=== PATIENT | female | born 1965 | race Caucasian/White ===

== ENCOUNTER 2019-10-26 09:17 | Inpatient (IN) ==
[2019-10-26] MEDS ORDERED: Ipratropium/Albuterol Neb 3 ML IH STA (09:30)
[2019-10-26] MEDS ORDERED: predniSONE 20 MG TABLET PO ONE (09:30)
[2019-10-26] MEDS ORDERED: 0.9 % Sodium Chloride 1,000 ML IVC STA (09:36)
[2019-10-26] MEDS ORDERED: cefTRIAXone 2,000 MG in Water for inj. (sterile) 20 ML IVP ONE (09:57)
[2019-10-26] MEDS ORDERED: Azithromycin 500 MG in 0.9 % Sodium Chloride 250 ML IVPB ONE (09:58)
[2019-10-26 10:03] LABS: Basophils % 0.1 %; Eosinophils # 0.1 K/mcL (0.0-0.6); Eosinophils % 0.4 %; Hematocrit 46.1 % (35.3-44.9); Hemoglobin 15.5 g/dL (11.5-15.4); Immature Granulocytes % 0.4 % (0-4); Lymphocytes # 1.4 K/mcL (0.6-4.6); Lymphocytes % 8.9 %; Mean Corpuscular HGB Conc 33.6 g/dL (31.6-35.5); Mean Corpuscular Hemoglobin 32.1 pg (28.0-33.3); Mean Corpuscular Volume 95.4 fL (83.0-100.0); Monocytes # 0.9 K/mcL (0.0-1.3); Monocytes % 5.4 %; Neutrophils # 13.7 K/mcL (1.6-8.9); Platelet Count 175 K/mcL (140-400); Red Blood Count 4.83 M/mcL (3.82-4.97); Red Cell Distribution Width 12.5 % (11.5-14.5); Segmented Neutrophils % 84.8 %; White Blood Count 16.1 K/mcL (4.3-11.1)
[2019-10-26 10:20] LABS: BUN/Creatinine Ratio 9 (6-26); Blood Urea Nitrogen 6 mg/dL (6-20); Calcium 9.5 mg/dL (8.6-10.3); Carbon Dioxide 25 mEq/L (23-29); Chloride 103 mEq/L (98-107); Glucose 134 mg/dL (70-105); Osmolality,Calculated 278 (280-300); Potassium 3.7 mEq/L (3.5-5.1); Sodium 134 mEq/L (136-145); eGFR For African Americans > 60 (> 60); eGFR For Non-African Americans > 60 (> 60)
[2019-10-26] MEDS ORDERED: Naloxone 0.4 MG/ML INJ IVP PRN (10:50)
[2019-10-26] MEDS ORDERED: Ondansetron 4 MG/2 ML VIAL IVP PRN (10:50)
[2019-10-26] MEDS ORDERED: Isovue-370 500 ML BOTTLE IVP ONE (11:35)
[2019-10-26] MEDS: 0.9 % Sodium Chloride 1,000 ML IVC SCH ×2 (13:26→20:09)
[2019-10-26] MEDS: *HR* Heparin 5,000 UNIT/ML VIAL SQ SCH ×2 (13:27→20:10)
[2019-10-26] MEDS: Nicotine 21 MG PATCH.TD24 TD SCH (13:37)
[2019-10-26] MEDS: Ipratropium/Albuterol Neb 3 ML IH PRN (18:48)
[2019-10-26] MEDS ORDERED: Acetaminophen 325 MG TABLET PO ONE (21:07)
[2019-10-27 01:27] LABS: Basophils % 0.1 %; Eosinophils % 0.1 %; Hematocrit 42.1 % (35.3-44.9); Immature Granulocytes % 0.5 % (0-4); Lymphocytes % 14.8 %; Mean Corpuscular HGB Conc 32.3 g/dL (31.6-35.5); Mean Corpuscular Hemoglobin 31.3 pg (28.0-33.3); Mean Corpuscular Volume 96.8 fL (83.0-100.0); Mean Platelet Volume 11.7 fL (9.4-12.4); Monocytes # 0.9 K/mcL (0.0-1.3); Monocytes % 6.8 %; Neutrophils # 10.6 K/mcL (1.6-8.9); Platelet Count 174 K/mcL (140-400); Red Blood Count 4.35 M/mcL (3.82-4.97); Red Cell Distribution Width 12.5 % (11.5-14.5); Segmented Neutrophils % 77.7 %; White Blood Count 13.6 K/mcL (4.3-11.1)
[2019-10-27 01:32] LABS: Hemoglobin 13.6 g/dL (11.5-15.4)
[2019-10-27 01:45] LABS: BUN/Creatinine Ratio 11 (6-26); Blood Urea Nitrogen 6 mg/dL (6-20); Calcium 8.8 mg/dL (8.6-10.3); Carbon Dioxide 26 mEq/L (23-29); Chloride 110 mEq/L (98-107); Glucose 104 mg/dL (70-105); Osmolality,Calculated 282 (280-300); Sodium 137 mEq/L (136-145); eGFR For African Americans > 60 (> 60); eGFR For Non-African Americans > 60 (> 60)
[2019-10-27] MEDS: Ipratropium/Albuterol Neb 3 ML IH PRN (04:15)
[2019-10-27] MEDS: *HR* Heparin 5,000 UNIT/ML VIAL SQ SCH ×3 (05:28→21:52)
[2019-10-27] MEDS: Nicotine 21 MG PATCH.TD24 TD SCH (09:31)
[2019-10-27] MEDS: cefTRIAXone 2,000 MG in 0.9 % Sodium Chloride Mini Bag 100 ML IVPB SCH (09:31)
[2019-10-27] MEDS: Azithromycin 500 MG in 0.9 % Sodium Chloride 250 ML IVPB SCH (09:32)
[2019-10-27] MEDS: predniSONE 20 MG TABLET PO SCH (09:33)
[2019-10-27] MEDS: Ipratropium/Albuterol Neb 3 ML IH SCH ×5 (11:52→23:58)
[2019-10-27] MEDS ORDERED: Acetaminophen 325 MG TABLET PO PRN (15:56)
[2019-10-28] MEDS: Ipratropium/Albuterol Neb 3 ML IH SCH ×5 (03:43→19:57)
[2019-10-28 04:12] LABS: Hematocrit 40.4 % (35.3-44.9); Hemoglobin 13.2 g/dL (11.5-15.4); Mean Corpuscular HGB Conc 32.7 g/dL (31.6-35.5); Mean Corpuscular Volume 98.1 fL (83.0-100.0); Mean Platelet Volume 11.5 fL (9.4-12.4); Platelet Count 200 K/mcL (140-400); Red Blood Count 4.12 M/mcL (3.82-4.97); Red Cell Distribution Width 12.5 % (11.5-14.5); White Blood Count 8.9 K/mcL (4.3-11.1)
[2019-10-28 04:23] LABS: BUN/Creatinine Ratio 19 (6-26); Blood Urea Nitrogen 11 mg/dL (6-20); Calcium 9.4 mg/dL (8.6-10.3); Carbon Dioxide 29 mEq/L (23-29); Chloride 109 mEq/L (98-107); Glucose 101 mg/dL (70-105); Osmolality,Calculated 290 (280-300); Potassium 4.2 mEq/L (3.5-5.1); Sodium 140 mEq/L (136-145); eGFR For African Americans > 60 (> 60); eGFR For Non-African Americans > 60 (> 60)
[2019-10-28] MEDS: *HR* Heparin 5,000 UNIT/ML VIAL SQ SCH ×3 (05:58→21:14)
[2019-10-28] MEDS: predniSONE 20 MG TABLET PO SCH (07:35)
[2019-10-28] MEDS: Nicotine 21 MG PATCH.TD24 TD SCH (07:36)
[2019-10-28] MEDS: Azithromycin 500 MG in 0.9 % Sodium Chloride 250 ML IVPB SCH (07:37)
[2019-10-28] MEDS: cefTRIAXone 2,000 MG in 0.9 % Sodium Chloride Mini Bag 100 ML IVPB SCH (07:37)
[2019-10-29] MEDS: Ipratropium/Albuterol Neb 3 ML IH SCH ×4 (00:12→11:29)
[2019-10-29] MEDS: *HR* Heparin 5,000 UNIT/ML VIAL SQ SCH (05:33)
[2019-10-29 05:39] LABS: Hematocrit 45.3 % (35.3-44.9); Hemoglobin 14.3 g/dL (11.5-15.4); Mean Corpuscular HGB Conc 31.6 g/dL (31.6-35.5); Mean Corpuscular Hemoglobin 30.8 pg (28.0-33.3); Mean Corpuscular Volume 97.6 fL (83.0-100.0); Mean Platelet Volume 11.7 fL (9.4-12.4); Platelet Count 230 K/mcL (140-400); Red Blood Count 4.64 M/mcL (3.82-4.97); Red Cell Distribution Width 12.7 % (11.5-14.5); White Blood Count 8.8 K/mcL (4.3-11.1)
[2019-10-29 05:50] LABS: BUN/Creatinine Ratio 16 (6-26); Blood Urea Nitrogen 11 mg/dL (6-20); Calcium 9.6 mg/dL (8.6-10.3); Carbon Dioxide 28 mEq/L (23-29); Chloride 105 mEq/L (98-107); Glucose 90 mg/dL (70-105); Osmolality,Calculated 287 (280-300); Potassium 3.6 mEq/L (3.5-5.1); Sodium 139 mEq/L (136-145); eGFR For African Americans > 60 (> 60); eGFR For Non-African Americans > 60 (> 60)
[2019-10-29 07:00] VITALS: BP 146/90
[2019-10-29] MEDS: predniSONE 20 MG TABLET PO SCH (07:53)
[2019-10-29] MEDS: Nicotine 21 MG PATCH.TD24 TD SCH (07:54)
[2019-10-29] MEDS: cefTRIAXone 2,000 MG in 0.9 % Sodium Chloride Mini Bag 100 ML IVPB SCH (07:55)
[2019-10-29] MEDS: Azithromycin 500 MG in 0.9 % Sodium Chloride 250 ML IVPB SCH (08:25)
== END 2019-10-29 12:35 | disposition home or self-care (01) | DRG 720 ==
LOC: 3ANU 09:17 → EMEROOARM 09:17 → SUATTDRO 10:50 → 3ANU 11:55 → SUATTDRO 10-27 15:30
PROVIDERS: ADMIT Family Medicine; ATTEND Internal Medicine